=== PATIENT | female | born 2000 | race Caucasian/White ===

== ENCOUNTER 2018-11-14 13:30 | Emergency (ER) | payer OTHER ==
[~2018-11-14] VITALS: Ht 144.8 cm; Wt 75.0 kg
[2018-11-14 13:56] VITALS: BP 138/77; PULSE 90; RESP 18; Ht 144.8 cm; Wt 75.0 kg
--- NOTE | 2018-11-14 17:05 | ERD ---
ER Documentation Chief Complaint Chief Complaint 9 WKS PREG WITH VAGINAL BLEEDING TODAY HPI Patient is a 18-year-old female, G1, P0, approximately 9 weeks , presents the ER for concerns of vaginal spotting which started earlier today. Patient denies wearing any pads. She states she only sees blood when wiping. Patient denies any nausea, vomiting, fevers, chills, dysuria, frequency, urgency. Patient's NURSING SURGICAL SERVICES DIRECTOR is at the [facility]. LMP= 09/10/18 ROS All systems reviewed and are negative except as per history of present illness. Allergies Allergies: Coded Allergies: Penicillins (Verified Allergy, Mild, RASH, 11/14/18) PMhx/Soc Medical and Surgical Hx: pt denies Medical Hx, pt denies Surgical Hx Hx Alcohol Use: No Hx Substance Use: No Hx Tobacco Use: No Smoking Status: Never smoker FmHx Family History: No diabetes Physical Exam Vitals Vital Signs Date Temp Pulse Resp B/P (MAP) Pulse Ox O2 O2 Flow FiO2 Time Delivery Rate 11/14/18 98.9 90 18 138/77 100 13:56 (97) Physical Exam GENERAL: Well-developed, well-nourished female. Appears in no acute distress. HEAD: Normocephalic, atraumatic. EYES: Pupils are equally reactive bilaterally. EOMs grossly intact. No conjunctival erythema. ENT: Moist mucous membranes. No uvula deviation. No kissing tonsils. NECK: Supple. No meningismus. Normal range of motion of the neck. LUNG: Clear to auscultation bilaterally. No rhonchi, wheezing, rales or coarse breath sounds. HEART: Regular rate and rhythm. No murmurs, rubs or gallops. ABDOMEN: No scars, ecchymosis or rashes noted. Soft, nontender, and nondistended. Positive bowel sounds in all four quadrants. No rebound tende rness, no guarding. (-) McBurney's point tenderness. No CVA tenderness. EXTREMITIES: Equal pulses bilaterally. No peripheral clubbing, cyanosis or edema. No unilateral leg swelling. NEUROLOGIC: Alert and oriented. Moving all four extremities without any difficulty. Normal speech. Steady gait. SKIN: Normal color. Warm and dry. No rashes or lesions. Result Diagram: 11/14/18 1551 Results 24 hrs Laboratory Tests Test 11/14/18 15:51 White Blood Count 9.8 10^3/ul Red Blood Count 4.58 10^6/ul Hemoglobin 13.5 g/dl Hematocrit 40.7 % Mean Corpuscular Volume 88.9 fl Mean Corpuscular Hemoglobin 29.5 pg Mean Corpuscular Hemoglobin Concent 33.2 g/dl Red Cell Distribution Width 11.9 % Platelet Count 318 10^3/UL Mean Platelet Volume 10.1 fl Immature Granulocytes % 0.500 % Neutrophils % 65.6 % Lymphocytes % 26.5 % Monocytes % 6.4 % Eosinophils % 0.6 % Basophils % 0.4 % Nucleated Red Blood Cells % 0.0 /100WBC Immature Granulocytes # 0.050 10^3/ul Neutrophils # 6.4 10^3/ul Lymphocytes # 2.6 10^3/ul Monocytes # 0.6 10^3/ul Eosinophils # 0.1 10^3/ul Basophils # 0.0 10^3/ul Nucleated Red Blood Cells # 0.0 10^3/ul Urine Color RED Urine Clarity CLOUDY Urine pH 6.0 Urine Specific [place] 1.021 Urine Ketones TRACE mg/dL Urine Nitrite NEGATIVE mg/dL Urine Bilirubin NEGATIVE mg/dL Urine Urobilinogen NEGATIVE mg/dL Urine Leukocyte Esterase TRACE Maury/ul Urine Microscopic RBC 4 /HPF Urine Microscopic WBC 22 /HPF Urine Squamous Epithelial Cells MODERATE /HPF Urine Bacteria FEW /HPF Urine Mucus MODERATE /HPF Urine Hemoglobin 3+ mg/dL Urine Glucose NEGATIVE mg/dL Urine Total Protein 2+ mg/dl Beta HCG, Quantitative 48746.0 mIU/ml Procedures/MDM ED COURSE: The patient was stable throughout ED course. I kept the patient and/or family informed of laboratory and diagnostic imaging results throughout the ED course. DIAGNOSTIC IMAGING: Read by radiologist. Radiology Main Line: [phone] DIAGNOSTIC IMAGING REPORT Patient: YORDY NUNEZ : 2000 Age: 18 Sex: F [id number] DOS: 11/14/18 1535 Ordering MD: HIRAL RICHARD PA-C Location: FTE Room/Bed: PROCEDURE: US OB. CLINICAL INDICATION: Vaginal bleeding TECHNIQUE: Transabdominal views of the pelvis are available for review. COMPARISON: No prior studies are available for comparison. FINDINGS: There is a single intrauterine gestation with the crown-rump length measuring 1.6 cm and the gestational sac measures 1.7 cm, corresponding to a gestational age of 7 weeks and 2 days. The heart rate is noted at 176 bpm. The ovaries are normal in size and echogenicity. Normal Doppler flow is identified in both ovaries. The right ovary measures 2.6 x 1.7 x 1.8 cm. The left ovary measures 2.4 x 1.3 x 2.5 cm. There is no free fluid. RPTAT: AA IMPRESSION: Single live intrauterine with an estimated gestational age of 7 weeks and 2 days, based on ultrasound measurements. JOVAN based on ultrasound measurements is 07/01/19. .Dhaval Saab MD, MD Date Time Electronically viewed and signed by .Dhaval Saab MD, MD on 11/14/2018 16:33 .S/ CC: HIRAL RICHARD PA-C [phone] MEDICAL DECISION MAKING: This is a 18-year-old female presents ER for concerns of vaginal spotting which started today. Vitals signs were reviewed. Patient was afebrile. Patient was hemodynamically stable. Urine test was positive. Quantitative b-HCG was [address]. Patient was O+, no indication for RhoGam at this time. CBC showed no evidence of systemic infection or severe anemia. UA did show trace leukocyte esterase, positive WBCs. Urine will be sent for culture. Results pending. Pelvic ultrasound showed Single live intrauterine with an estimated gestational age of 7 weeks and 2 days, based on ultrasound measurements. JOVAN based on ultrasound measurements is 07/01/19. Given these findings, the patient's presentation is most consistent with threatened . I have a much lower clinical concern for ectopic , ruptured ectopic , molar , subchorionic hematoma, placental abruption, placental previa, vasa previa, uterine rupture, anembyronic . Patient was advised to return here in 2 days for repeat beta-hCG and ultrasound. DISCHARGE: At this time, patient is stable for discharge and outpatient management. I had a conversation at length with the patient about the concerns of vaginal bleeding during the 1st trimester of . Patient and/or family understands that her vaginal bleeding can be a normal finding or a sign of miscarriage. I have instructed the patient to follow-up with her OBGYN in 1-2 days for further monitoring including a repeat b-HCG level. I have instructed the patient to promptly return to the ER at any time for any new or worsening symptoms including increased pain, nausea, vomiting, continued bleeding, weakness, syncope or fever. The patient and/or family expressed understanding of and agreement with this plan. All questions were answered. Home care instructions were provided. Disclaimer: Inadvertent spelling and grammatical errors are likely due to EHR/dictation software use and do not reflect on the overall quality of patient care. Also, please note that the electronic time recorded on this note does not necessarily reflect the actual time of the patient encounter. Departure Diagnosis: Primary Impression: Vaginal bleeding in patient at less than 20 weeks ges... Condition: Fair Patient Instructions: Bleeding During Early Referrals: [facility] CL[facility]ICS YOU HAVE RECEIVED A MEDICAL SCREENING EXAM AND THE RESULTS INDICATE THAT YOU DO NOT HAVE A CONDITION THAT REQUIRES URGENT TREATMENT IN THE EMERGENCY DEPARTMENT. FURTHER EVALUATION AND TREATMENT OF YOUR CONDITION CAN WAIT UNTIL YOU ARE SEEN IN YOUR DOCTORS OFFICE WITHIN THE NEXT 1-2 DAYS. IT IS YOUR RESPONSIBILITY TO MAKE AN APPOINTMENT FOR FOLOW-UP CARE. IF YOU HAVE A PRIMARY DOCTOR --you should call your primary doctor and schedule an appointment IF YOU DO NOT HAVE A PRIMARY DOCTOR YOU CAN CALL OUR PHYSICIAN REFERRAL HOTLINE AT IF YOU CAN NOT AFFORD TO SEE A PHYSICIAN YOU CAN CHOSE FROM THE FOLLOWING [facility] CLINICS [facility] [address] [facility] [address] [facility]. [facility] [address] [facility] [address] [facility] [address] [facility]. [facility]. [address] [facility]. [facility] YOU HAVE RECEIVED A MEDICAL SCREENING EXAM AND THE RESULTS INDICATE THAT YOU DO NOT HAVE A CONDITION THAT REQUIRES URGENT TREATMENT IN THE EMERGENCY DEPARTMENT. FURTHER EVALUATION AND TREATMENT OF YOUR CONDITION CAN WAIT UNTIL YOU ARE SEEN IN YOUR DOCTORS OFFICE WITHIN THE NEXT 1-2 DAYS. IT IS YOUR RESPONSIBILITY TO MAKE AN APPOINTMENT FOR FOLOW-UP CARE. IF YOU HAVE A PRIMARY DOCTOR --you should call your primary doctor and schedule and appointment IF YOU DO NOT HAVE A PRIMARY DOCTOR YOU CAN CALL OUR PHYSICIAN REFERRAL HOTLINE AT . IF YOU CAN NOT AFFORD TO SEE A PHYSICIAN YOU CAN CHOSE FROM THE FOLLOWING [facility] INSTITUTIONS: [facility] [address] [place] [address] [facility] [address] [place] [address] [facility] [address] [place] [address] NURSING SURGICAL SERVICES DIRECT[place] [address] [facility] [address] [place] [address] OFFICE FAX BUTCH SHAVER [address] [place] [address] [address] [place] [address] [place] [address] [place] [address] [facility], [address], [facility] [address] [address] [place] [address] [place] [address] [facility] [address] [place] [address] [phone] [facility] [address] - [place] [address], [facility] [address] [address] [address] [facility]. [address], [facility] [address] [address] [address] [place] [address] Additional Instructions: Recheck advised in 48 hours. Return here for repeat beta-hCG and ultrasound. Call your primary care doctor TOMORROW for an appointment during the next 1-2 days.See the doctor sooner or return here if your condition worsens before your appointment time. HIRAL RICHARD PA-C Nov 14, 2018 17:05
== END 2018-11-14 17:39 | disposition home or self-care (01) ==
LOC: FTE 13:30
DX: O20.9 Hemorrhage in early pregnancy, unspecified (principal); Z3A.01 Less than 8 weeks gestation of pregnancy
CPT/HCPCS: 36415; 76801; 76817; 81001; 84702; 85025; 86900; 86901; 87086

== ENCOUNTER 2018-11-16 11:05 | Emergency (ER) | payer OTHER ==
[~2018-11-16] VITALS: Ht 152.4 cm; Wt 73.5 kg
[2018-11-16 11:09] VITALS: BP 136/87; PULSE 99; RESP 20; Ht 152.4 cm; Wt 73.5 kg
[2018-11-16] MEDS ORDERED: NITR-58 PO (14:30)
--- NOTE | 2018-11-16 17:32 | ERD ---
ER Documentation Chief Complaint Chief Complaint Patient here for a recheck HPI 18-year-old female patient with no significant past medical history presents to the ED complaining of vaginal bleeding as well as hematuria however states that has improved. Patient was here 2 days ago and was noted to have a beta hCG of 56,325 with an IUP noted. Patient's last menstruation was on September 10, 2018. Denies any fever, chills, nausea, vomiting, diarrhea, neck stiffness. ROS All systems reviewed and are negative except as per history of present illness. Medications Home Meds Active Scripts Nitrofurantoin Monohyd Macrocr* (Macrobid*) 100 Mg Capsr, 100 MG PO BID for 7 Days, CAP Prov:JORDYN FRIEDMAN PA-C 11/16/18 Allergies Allergies: Coded Allergies: Penicillins (Verified Allergy, Mild, RASH, 11/14/18) PMhx/Soc Medical and Surgical Hx: pt denies Medical Hx, pt denies Surgical Hx Hx Alcohol Use: No Hx Substance Use: No Hx Tobacco Use: No Smoking Status: Never smoker FmHx Family History: No diabetes, No coronary disease Physical Exam Vitals Vital Signs Date Temp Pulse Resp B/P (MAP) Pulse Ox O2 O2 Flow FiO2 Time Delivery Rate 11/16/18 98.6 99 20 136/87 95 11:09 (103) Physical Exam Const: Dvq-sml-rhnwhwlmt, well-nourished. In no acute distress. Head: Atraumatic, normocephalic Eyes: Normal Conjunctiva without injection. No purulent discharge. ENT: Normal external ear, nose. Moist oropharynx without tonsillar exudates. Non-erythematous pharynx. Uvula midline. No drooling. No trismus. Neck: No cervical midline tenderness. Full range of motion. No meningismus. No cervical lymphadenopathy. No JVD. Resp: Clear to auscultation bilaterally. No wheezing, rhonchi, rales, or crackles. No accessory muscle use. No retractions. Cardio: Regular rate and rhythm. No murmurs, rubs or gallops. Abd: Soft, nontender, non distended. Normal bowel sounds. No palpable masses. No rebound tenderness. No guarding. Negative McBurney's point. Negative psoas sign. Negative obturator sign. Skin: No petechiae or rashes Back: No midline tenderness. No CVA tenderness. Ext: No cyanosis, or edema. Neur: Awake and alert. Normal gait. Normal coordination. Psych: Normal Mood and Affect Results 24 hrs Laboratory Tests Test 11/16/18 12:01 Beta HCG, Quantitative 90413.0 mIU/ml Procedures/MDM 18-year-old female patient with no significant past medical history presents to ED for a repeat beta-hCG and was told to return for this laboratory blood work. Patient is afebrile and nontoxic-appearing. Patient reports that her vaginal bleeding has improved and has some slight hematuria. Patient reports that she did not receive any antibiotics for her urinary tract infection. Beta hCG today is now 68,231 which has increased from 2 days ago on November 14, 2018 which was 56,325. He was noted to have a single IUP of 7 weeks, 2 days on the ultrasound, 2 days ago. Low suspicion for symptomatic anemia, ectopic , sepsis, PID, appendicitis, ovarian torsion, tubo-ovarian abscess, surgical abdomen, or other emergent conditions. Patient was educated that there is a risk for threatened . Diagnosis: Encounter for laboratory test Discharge medications: Macrobid Follow up with primary care physician in 1-2 days. Instructed patient to return to the ED sooner for any worsening symptoms. Patient's questions were answered. Patient is hemodynamically stable. Patient understood and agreed with discharge plan. Patient discharged stable. Disclaimer: Inadvertent spelling and grammatical errors are likely due to EHR/dictation software use and do not reflect on the overall quality of patient care. Also, please note that the electronic time recorded on this note does not necessarily reflect the actual time of the patient encounter. Departure Diagnosis: Primary Impression: Encounter for laboratory test Condition: Stable Patient Instructions: Urinary Tract Infections in Women, Vaginal Bleed in Referrals: COMMUNITY CLINICS YOU HAVE RECEIVED A MEDICAL SCREENING EXAM AND THE RESULTS INDICATE THAT YOU DO NOT HAVE A CONDITION THAT REQUIRES URGENT TREATMENT IN THE EMERGENCY DEPARTMENT. FURTHER EVALUATION AND TREATMENT OF YOUR CONDITION CAN WAIT UNTIL YOU ARE SEEN IN YOUR DOCTORS OFFICE WITHIN THE NEXT 1-2 DAYS. IT IS YOUR RESPONSIBILITY TO MAKE AN APPOINTMENT FOR FOLOW-UP CARE. IF YOU HAVE A PRIMARY DOCTOR --you should call your primary doctor and schedule an appointment IF YOU DO NOT HAVE A PRIMARY DOCTOR YOU CAN CALL OUR PHYSICIAN REFERRAL HOTLINE AT IF YOU CAN NOT AFFORD TO SEE A PHYSICIAN YOU CAN CHOSE FROM THE FOLLOWING [facility] CLINICS [facility] [address] [facility] [address] [facility] [phone] [facility] [address] [facility] [phone] [facility]. [facility] [address] [facility]. [facility] YOU HAVE RECEIVED A MEDICAL SCREENING EXAM AND THE RESULTS INDICATE THAT YOU DO NOT HAVE A CONDITION THAT REQUIRES URGENT TREATMENT IN THE EMERGENCY DEPARTMENT. FURTHER EVALUATION AND TREATMENT OF YOUR CONDITION CAN WAIT UNTIL YOU ARE SEEN IN YOUR DOCTORS OFFICE WITHIN THE NEXT 1-2 DAYS. IT IS YOUR RESPONSIBILITY TO MAKE AN APPOINTMENT FOR FOLOW-UP CARE. IF YOU HAVE A PRIMARY DOCTOR --you should call your primary doctor and schedule and appointment IF YOU DO NOT HAVE A PRIMARY DOCTOR YOU CAN CALL OUR PHYSICIAN REFERRAL HOTLINE AT . IF YOU CAN NOT AFFORD TO SEE A PHYSICIAN YOU CAN CHOSE FROM THE FOLLOWING [facility] INSTITUTIONS: [facility] [address] [place] [address] [facility] [address] [place] [address] [facility] [address] [place] [address] [facility] URGENT CARE/SPECIALTIES FINANCIAL OPERATIONS [place] [address] [facility] [address] [place], [place] [id number] OFFICE FAX DAWOOD SHAVERNICA [address] [place] [address] [address] [place] [address] [place], [place] [id number] [place] [address] [facility], [address] [facility] [address] [address] [place] [address] [place] [id number] [facility] [place] [address] [place], [place] [id number] [address] [facility] [address] - [address] HUTCHISON, [place] [address], [facility] [id number] LAUGHLIN, [place] [address] [facility]. [address], [facility] [address] [address] [facility] [address] [place] [address] [facility] Hours: 8:00 am - 5:00 pm Additional Instructions: Call your primary care doctor TOMORROW for an appointment during the next 2-3 days.See the doctor sooner or return here if your condition worsens before your appointment time. JORDYN FRIEDMAN PA-C Nov 16, 2018 17:32
== END 2018-11-16 14:43 | disposition home or self-care (01) ==
LOC: FTE 11:05
DX: Z00.00 Encounter for general adult medical examination without abnormal findings (principal)
CPT/HCPCS: 36415; 84702; Z7502; 99283

== ENCOUNTER 2019-03-29 15:13 | Outpatient (CLI) | payer OTHER ==
[~2019-03-29] VITALS: Ht 149.9 cm; Wt 71.3 kg
[~2019-03-29 15:13] MED LIST: NITR-58 PO
[2019-03-29 18:13] VITALS: Ht 149.9 cm; Wt 71.3 kg
[2019-03-29 18:16] VITALS: BP 113/72; PULSE 88; RESP 19
--- NOTE | 2019-03-29 21:32 | TRIAGE ---
OB Triage Datetime Report Generated by CPN: 03/29/2019 21:31 Datetime: 03/29/2019 21:22 Time of Arrival: 03/29/2019 15:00 EGA: 27.2 Arrived By: Ambulatory Arrived From: Home Chief Complaint: ABDOMINAL PAIN Movement: Present Contractions: Denies/Absent Rupture of Membranes: Denies Vaginal Bleeding: None Vaginal Discharge: Denies Recent Sexual Intercouse: Denies Abdominal Trauma: Not Applicable Patient Complaints: Other Time Provider Notified: 03/29/2019 17:24 Provider Notified: TYREE Initial Plan: CEFM, AMBULATING WITH ABDOMINAL BINDER, UA Datetime: 03/29/2019 19:30 Labor Evaluation Frequency: X2 Monitor Mode: External Duration (sec)2399: 50-60 Pattern: Normal: <= 5 Contractions in 10 Minutes Heart Rate FHR Baseline Rate: 140 Monitor Mode: External US Variability: Moderate 6-25 bpm Accelerations: 15X15 Comments: APPROPRIATE FOR GESTATIONAL AGE Datetime: 03/29/2019 19:10 Monitor Mode: External Monitor Mode: External US Pain Assessment Pain Scale: 0 Pain Presence: None/Denies Pain Type: N/A Pain Assessment Comments: PT STATES THAT SHE FEELS BETTER AFTER WALKING AROUND WITH ABDOMINAL BINDE R. Datetime: 03/29/2019 17:47 Maternal Assessment Level of Consciousness: Keenly Alert, Responsive Labor Evaluation Frequency: 0 Monitor Mode: External Resting Tone [place]: Relaxed Heart Rate FHR Baseline Rate: 135 Monitor Mode: External US Variability: Moderate 6-25 bpm Accelerations: 15X15 Decelerations: None Category: Category I Pain Assessment Pain Scale: 3 Pain Presence: Intermittent Pain Type: Ache Pain Location: Abdomen Pain Goal: 0 Pain Relief Measures: Comfort Measures
--- NOTE | 2019-03-29 22:28 | PN ---
Triage Information Date/Time 03/29/1904/09/2214 Reason for visit: Abd/pelvic pain Weeks of Gestation 27w2d /Para Diabetes: none Hypertention: none Objective Vital Signs Date Temp Pulse Resp B/P (MAP) Pulse Ox O2 O2 Flow FiO2 Time Delivery Rate 03/29/19 98.6 88 19 113/72 Room Air 18:16 (86) Heart Rate: 140's Heart Rate Comments adequate for GA Contractions: None Exam CVA neg u/a pos for wbc urine culture sent previous laborist gave abdominal binder and let patient walk which resolved pelvic pain Results/Medications Results 24 hrs Laboratory Tests Test 03/29/19 17:25 Urine Color GARY Urine Clarity CLOUDY A Urine pH 5.0 Urine Specific [place] 1.029 Urine Ketones TRACE A Urine Nitrite NEGATIVE Urine Bilirubin NEGATIVE Urine Urobilinogen NEGATIVE Urine Leukocyte Esterase 1+ H Urine Microscopic RBC 4 Urine Microscopic WBC 13 H Urine Squamous Epithelial Cells MODERATE Urine Calcium Oxalate Crystals MANY A Urine Bacteria FEW A Urine Mucus MODERATE Urine Hemoglobin NEGATIVE Urine Glucose NEGATIVE Urine Total Protein 1+ H Disposition: Discharge Assessment/Plan A IUP 27w2d pelvic pain most likely ligament pain UTI P discharge home with Rx macrobid BID #20, increase water intake f/u with her OB, RTH prn TONY DONAHUE MD Mar 29, 2019 22:24
== END 2019-03-29 19:40 | disposition home or self-care (01) ==
LOC: OBT 15:13 → L-D 15:14 → OBT 19:40
PROVIDERS: ATTEND Obstetrics & Gynecology
DX: O26.892 Other specified pregnancy related conditions, second trimester (principal); R10.2 Pelvic and perineal pain; O23.42 Unspecified infection of urinary tract in pregnancy, second trimester; Z3A.27 27 weeks gestation of pregnancy
CPT/HCPCS: 81001; 87086; Z7500; Z7610; G0463